=== PATIENT | male | born 1980 | race Caucasian/White ===

== ENCOUNTER 2020-10-10 13:29 | Outpatient (REF) | payer OTHER, SELFPAY ==
[2020-10-10 13:34] LABS: MANUAL DIFF FLAG NO
[2020-10-10 13:40] LABS: Basophils Absolute Auto 0.1 X10*3/uL (0.0-0.2); Basophils Percent Auto 1.1 % (0-2); Eosinophils Absolute Auto 0.4 X10*3/uL (0.0-0.4); Eosinophils Percent Auto 4.3 % (0-4); Hematocrit 41.6 % (42-52); Imm Gran Abs Auto 0.03 X10*3/uL (0.00-0.03); Imm Gran Pct Auto 0.3 % (0.0-0.4); Lymphocytes Percent Auto 34.1 % (20-40); Mean Corpuscular HGB Conc 33.7 g/dl (31.0-36.0); Mean Corpuscular Hemoglobin 32.1 pg (27.0-33.0); Mean Corpuscular Volume 95.4 fL (80-98); Mean Platelet Volume 11.9 fL (9.4-12.4); Monocytes Absolute Auto 0.7 X10*3/uL (0.1-1.2); Monocytes Percent Auto 7.9 % (2-11); Neutrophils Absolute Auto 4.7 X10*3/uL (2.0-8.3); Neutrophils Percent Auto 52.3 % (45-73); Platelet Count 321 X10*3/uL (160-400); Red Blood Count 4.36 X10*6/uL (4.60-5.80); Red Cell Distribution Width 12.2 % (11.0-16.0); White Blood Count 8.9 X10*3/uL (4.8-10.8)
[2020-10-10 13:51] LABS: Glucose Urine UA NEG (NEG); Leukocyte Esterase Urine NEG (NEG); Nitrite Urine NEG (NEG); Urine Blood NEG (NEG); Urine Ketones NEG (NEG); Urine Protein NEG (NEG-TRACE)
[2020-10-10 13:59] LABS: Appearance Urine CLEAR; Color Urine YELLOW
[2020-10-10 14:15] LABS: Alanine Aminotransferase 27 U/L (0-40); Albumin Level 4.6 g/dL (3.5-5.0); Alkaline Phosphatase 58 U/L (39-117); Anion Gap 9 (12-20); Aspartate Amino Transferase 23 U/L (5-37); Bilirubin Total 0.7 mg/dL (0.0-1.0); Blood Urea Nitrogen 13 mg/dL (9-16); Calcium 9.4 mg/dL (8.4-10.2); Carbon Dioxide 28 mmol/L (22-29); Chloride 104 mmol/L (96-108); Cholesterol 245 mg/dL; Estimated Glomerular Filt Rate > 60; Glucose Fasting 102 mg/dL (60-99); HDL Cholesterol 39 mg/dL; LDL Cholesterol Calculated 179 mg/dl; Potassium 3.9 mmol/L (3.3-5.1); Sodium 137 mmol/L (135-145); Total Protein 7.5 g/dL (6.5-8.0); Triglycerides 139 mg/dL
[2020-10-10 14:37] LABS: PSA,Total (Free>4and<10) 0.61 ng/mL (0.00-4.00)
[2020-10-10 17:08] LABS: Reflex LDLD? No
== END 2020-10-10 13:30 | disposition home or self-care (01) ==
LOC: HO.LNP 13:29
PROVIDERS: Visit Provider Internal Medicine
DX: Z00.00 Encounter for general adult medical examination without abnormal findings (principal); Z12.5 Encounter for screening for malignant neoplasm of prostate; E78.00 Pure hypercholesterolemia, unspecified
CPT/HCPCS: 80053; 80061; 81003; 84153; 85025

== ENCOUNTER 2021-12-10 15:29 | Outpatient (REF) | payer OTHER, SELFPAY ==
[2021-12-10 15:33] LABS: MANUAL DIFF FLAG NO
[2021-12-10 15:37] LABS: Appearance Urine CLEAR; Basophils Absolute Auto 0.1 X10*3/uL (0.0-0.2); Basophils Percent Auto 0.8 % (0-2); Color Urine YELLOW; Eosinophils Absolute Auto 0.3 X10*3/uL (0.0-0.4); Eosinophils Percent Auto 3.1 % (0-4); Glucose Urine UA NEG (NEG); Hematocrit 42.7 % (42.0-52.0); Imm Gran Abs Auto 0.03 X10*3/uL (0.00-0.03); Imm Gran Pct Auto 0.3 % (0.0-0.4); Leukocyte Esterase Urine NEG (NEG); Lymphocytes Absolute Auto 2.2 X10*3/uL (1.2-4.9); Lymphocytes Percent Auto 24.7 % (20-40); Mean Corpuscular HGB Conc 32.8 g/dl (31.0-36.0); Mean Corpuscular Hemoglobin 31.8 pg (27.0-33.0); Mean Platelet Volume 12.2 fL (9.4-12.4); Monocytes Absolute Auto 0.8 X10*3/uL (0.1-1.2); Neutrophils Absolute Auto 5.5 x10*3/uL (2.0-8.3); Neutrophils Percent Auto 62.1 % (45-73); Nitrite Urine NEG (NEG); Platelet Count 258 X10*3/uL (160-400); Red Cell Distribution Width 12.5 % (11.0-16.0); Specific Gravity - Urine 1.025 (1.005-1.025); Urine Blood TRACE (NEG); Urine Ketones NEG (NEG); Urine Protein NEG (NEG-TRACE); White Blood Count 8.9 X10*3/uL (4.8-10.8)
[2021-12-10 15:48] LABS: Bacteria Urine TRACE /LPF; RBC Urine 0-2 /HPF (0); Squamous Epithelial Cell Urine TRACE /LPF; WBC Urine 0 /HPF (0-4)
[2021-12-10 15:49] LABS: Alanine Aminotransferase 18 U/L (0-40); Albumin Level 4.4 g/dL (3.5-5.0); Alkaline Phosphatase 60 U/L (39-117); Anion Gap 12 (12-20); Aspartate Amino Transferase 19 U/L (5-37); Bilirubin Total 0.5 mg/dL (0.0-1.0); Blood Urea Nitrogen 15 mg/dL (9-16); Calcium 9.8 mg/dL (8.4-10.2); Carbon Dioxide 26 mmol/L (22-29); Chloride 104 mmol/L (96-108); Cholesterol 271 mg/dL; Estimated Glomerular Filt Rate > 60; Glucose Fasting 97 mg/dL (60-99); HDL Cholesterol 40 mg/dL; LDL Cholesterol Calculated 201 mg/dl; Potassium 4.1 mmol/L (3.3-5.1); Sodium 138 mmol/L (135-145); Total Protein 7.4 g/dL (6.5-8.0); Triglycerides 154 mg/dL
[2021-12-11 12:11] LABS: Free Prostate Spec Ag 0.2 ng/mL; Percent Free Prostate Spec Ag 40 % (calc) (>25); Prostate Specific Ag Total 0.5 ng/mL (< OR = 4.0)
== END 2021-12-10 15:30 | disposition home or self-care (01) ==
LOC: HO.LNP 15:29
PROVIDERS: Visit Provider Internal Medicine
DX: Z00.00 Encounter for general adult medical examination without abnormal findings (principal); Z12.5 Encounter for screening for malignant neoplasm of prostate; E78.00 Pure hypercholesterolemia, unspecified
CPT/HCPCS: 80053; 80061; 81001; 84154; 85025

== ENCOUNTER 2022-06-17 15:34 | Outpatient (REF) | payer OTHER, SELFPAY ==
[2022-06-17 16:19] LABS: Cholesterol 266 mg/dL; HDL Cholesterol 43 mg/dL; LDL Cholesterol Calculated 200 mg/dl; Triglycerides 115 mg/dL
[2022-06-18 06:30] LABS: Reflex LDLD? No
== END 2022-06-17 15:35 | disposition home or self-care (01) ==
LOC: HO.LNP 15:34
PROVIDERS: Visit Provider Internal Medicine
DX: E78.00 Pure hypercholesterolemia, unspecified (principal)
CPT/HCPCS: 80061

== ENCOUNTER 2022-10-05 15:48 | Outpatient (REF) | payer OTHER, SELFPAY ==
[2022-10-05 16:04] LABS: Alanine Aminotransferase 20 U/L (0-40); Albumin Level 4.7 g/dL (3.5-5.0); Alkaline Phosphatase 65 U/L (39-117); Aspartate Amino Transferase 20 U/L (5-37); Bilirubin Direct < 0.2 mg/dL (0.0-0.5); Bilirubin Total 0.5 mg/dL (0.0-1.0); Cholesterol 159 mg/dL; HDL Cholesterol 46 mg/dL; LDL Cholesterol Calculated 96 mg/dl; Total Protein 7.2 g/dL (6.5-8.0); Triglycerides 88 mg/dL
[2022-10-05 18:02] LABS: Reflex LDLD? No
== END 2022-10-05 15:49 | disposition home or self-care (01) ==
LOC: HO.LNP 15:48
PROVIDERS: Visit Provider Internal Medicine
DX: E78.00 Pure hypercholesterolemia, unspecified (principal)
CPT/HCPCS: 80061; 80076

== ENCOUNTER 2022-12-14 15:43 | Outpatient (REF) | payer OTHER, SELFPAY ==
[2022-12-14 15:46] LABS: MANUAL DIFF FLAG NO
[2022-12-14 16:28] LABS: Appearance Urine Clear; Color Urine Yellow; Glucose Urine UA Negative (Negative); Leukocyte Esterase Urine Negative (Negative); Nitrite Urine Negative (Negative); PH 6.5 (5.0-9.0); Urine Blood Negative (Negative); Urine Ketones Negative (Negative); Urine Protein Negative (Neg-Trace)
[2022-12-14 16:30] LABS: Basophils Absolute Auto 0.1 X10*3/uL (0.0-0.2); Eosinophils Absolute Auto 0.3 X10*3/uL (0.0-0.4); Hematocrit 43.6 % (42.0-52.0); Hemoglobin 14.4 g/dl (14.0-18.0); Imm Gran Abs Auto 0.02 X10*3/uL (0.00-0.03); Imm Gran Pct Auto 0.3 % (0.0-0.4); Lymphocytes Absolute Auto 2.6 X10*3/uL (1.2-4.9); Lymphocytes Percent Auto 32.2 % (20-40); Mean Corpuscular Hemoglobin 31.3 pg (27.0-33.0); Mean Corpuscular Volume 94.8 fL (80.0-98.0); Mean Platelet Volume 12.7 fL (9.4-12.4); Monocytes Absolute Auto 0.7 X10*3/uL (0.1-1.2); Monocytes Percent Auto 8.5 % (2-11); Neutrophils Absolute Auto 4.3 x10*3/uL (2.0-8.3); Platelet Count 251 X10*3/uL (160-400); Red Cell Distribution Width 12.8 % (11.0-16.0); White Blood Count 7.9 X10*3/uL (4.8-10.8)
[2022-12-14 16:31] LABS: Bacteria Urine None Seen (None Seen); Hyaline Casts Urine 0-2 /LPF (0-2); RBC Urine 0-2 /HPF (0-2); Squamous Epithelial Cell Urine 0-2 /HPF (0-2); WBC Urine 0-5 /HPF (0-5)
[2022-12-14 16:47] LABS: Alanine Aminotransferase 18 U/L (0-40); Albumin Level 4.6 g/dL (3.5-5.0); Alkaline Phosphatase 72 U/L (39-117); Anion Gap 11 (12-20); Aspartate Amino Transferase 17 U/L (5-37); Bilirubin Total 0.5 mg/dL (0.0-1.0); Blood Urea Nitrogen 12 mg/dL (9-16); Calcium 9.5 mg/dL (8.4-10.2); Carbon Dioxide 27 mmol/L (22-29); Chloride 107 mmol/L (96-108); Cholesterol 147 mg/dL; Estimated Glomerular Filt Rate > 60; Glucose Fasting 103 mg/dL (60-99); HDL Cholesterol 40 mg/dL; LDL Cholesterol Calculated 91 mg/dl; Potassium 4.4 mmol/L (3.3-5.1); Sodium 141 mmol/L (135-145); Total Protein 7.2 g/dL (6.5-8.0); Triglycerides 82 mg/dL
[2022-12-14 17:01] LABS: PSA,Total (Free>4and<10) 0.48 ng/mL (0.00-4.00)
== END 2022-12-14 15:44 | disposition home or self-care (01) ==
LOC: HO.LNP 15:43
PROVIDERS: Visit Provider Internal Medicine
DX: Z00.00 Encounter for general adult medical examination without abnormal findings (principal); E78.00 Pure hypercholesterolemia, unspecified; Z12.5 Encounter for screening for malignant neoplasm of prostate
CPT/HCPCS: 80053; 80061; 81001; 84153; 85025

== ENCOUNTER 2023-06-24 13:09 | Outpatient (REF) | payer OTHER, SELFPAY ==
[2023-06-24 14:16] LABS: Alanine Aminotransferase 17 U/L (0-40); Albumin Level 4.6 g/dL (3.5-5.0); Alkaline Phosphatase 71 U/L (39-117); Aspartate Amino Transferase 19 U/L (5-37); Bilirubin Direct 0.2 mg/dL (0.0-0.5); Bilirubin Total 0.5 mg/dL (0.0-1.0); Cholesterol 154 mg/dL (<200); HDL Cholesterol 42 mg/dL (>40); LDL Cholesterol Calculated 93 mg/dL (<100); Total Protein 7.5 g/dL (6.5-8.0); Triglycerides 98 mg/dL (<150)
[2023-06-24 14:48] LABS: Reflex LDLD? No
== END 2023-06-24 13:10 | disposition home or self-care (01) ==
LOC: HO.LNP 13:09
PROVIDERS: Visit Provider Internal Medicine
DX: E78.00 Pure hypercholesterolemia, unspecified (principal)
CPT/HCPCS: 80061; 80076

== ENCOUNTER 2023-12-16 12:59 | Outpatient (REF) | payer OTHER, SELFPAY ==
[2023-12-16 13:02] LABS: MANUAL DIFF FLAG NO
[2023-12-16 13:10] LABS: Basophils Absolute Auto 0.1 X10*3/uL (0.0-0.2); Basophils Percent Auto 1.1 % (0-2); Eosinophils Absolute Auto 0.4 X10*3/uL (0.0-0.4); Eosinophils Percent Auto 4.7 % (0-4); Hematocrit 41.5 % (42.0-52.0); Hemoglobin 14.3 g/dl (14.0-18.0); Imm Gran Abs Auto 0.03 X10*3/uL (0.00-0.03); Imm Gran Pct Auto 0.4 % (0.0-0.4); Lymphocytes Absolute Auto 2.2 X10*3/uL (1.2-4.9); Lymphocytes Percent Auto 25.2 % (20-40); Mean Corpuscular HGB Conc 34.5 g/dl (31.0-36.0); Mean Corpuscular Hemoglobin 31.8 pg (27.0-33.0); Mean Corpuscular Volume 92.4 fL (80.0-98.0); Mean Platelet Volume 12.2 fL (9.4-12.4); Monocytes Absolute Auto 0.9 X10*3/uL (0.1-1.2); Monocytes Percent Auto 10.1 % (2-11); Neutrophils Percent Auto 58.5 % (45-73); Platelet Count 244 X10*3/uL (160-400); Red Blood Count 4.49 X10*6/uL (4.60-5.80); Red Cell Distribution Width 12.5 % (11.0-16.0); White Blood Count 8.5 X10*3/uL (4.8-10.8)
[2023-12-16 13:20] LABS: Alanine Aminotransferase 19 U/L (0-40); Albumin Level 4.6 g/dL (3.5-5.0); Alkaline Phosphatase 68 U/L (39-117); Anion Gap 13 (12-20); Aspartate Amino Transferase 19 U/L (5-37); Bilirubin Total 0.4 mg/dL (0.0-1.0); Blood Urea Nitrogen 14 mg/dL (9-16); Carbon Dioxide 27 mmol/L (22-29); Chloride 105 mmol/L (96-108); Cholesterol 150 mg/dL (<200); Estimated Glomerular Filt Rate > 60; Glucose Fasting 121 mg/dL (60-99); HDL Cholesterol 42 mg/dL (>40); LDL Cholesterol Calculated 93 mg/dL (<100); Potassium 3.9 mmol/L (3.3-5.1); Sodium 141 mmol/L (135-145); Total Protein 7.8 g/dL (6.5-8.0); Triglycerides 79 mg/dL (<150)
[2023-12-16 13:32] LABS: Appearance Urine Clear; Color Urine Yellow; Glucose Urine UA Negative (Negative); Leukocyte Esterase Urine Negative (Negative); Nitrite Urine Negative (Negative); PH 5.5 (5.0-9.0); Urine Blood Negative (Negative); Urine Ketones Negative (Negative); Urine Protein Negative (Neg-Trace)
[2023-12-16 13:37] LABS: Bacteria Urine None Seen (None Seen); Hyaline Casts Urine 0-2 /LPF (0-2); RBC Urine 0-2 /HPF (0-2); Squamous Epithelial Cell Urine 0-2 /HPF (0-2); WBC Urine 0-5 /HPF (0-5)
[2023-12-16 13:40] LABS: PSA,Total (Free>4and<10) 0.47 ng/mL (0.00-4.00)
== END 2023-12-16 13:00 | disposition home or self-care (01) ==
LOC: HO.LNP 12:59
PROVIDERS: Visit Provider Internal Medicine
DX: Z00.00 Encounter for general adult medical examination without abnormal findings (principal); Z12.5 Encounter for screening for malignant neoplasm of prostate; Z13.6 Encounter for screening for cardiovascular disorders
CPT/HCPCS: 80053; 80061; 81001; 84153; 85025

== ENCOUNTER 2024-06-25 13:09 | Outpatient (REF) | payer OTHER, SELFPAY ==
[2024-06-25 13:43] LABS: Alanine Aminotransferase 31 U/L (0-40); Albumin Level 4.5 g/dL (3.5-5.0); Alkaline Phosphatase 70 U/L (39-117); Aspartate Amino Transferase 26 U/L (5-37); Bilirubin Direct 0.2 mg/dL (0.0-0.5); Bilirubin Total 0.4 mg/dL (0.0-1.0); Cholesterol 158 mg/dL (<200); HDL Cholesterol 42 mg/dL (>40); LDL Cholesterol Calculated 97 mg/dL (<100); Total Protein 7.5 g/dL (6.5-8.0); Triglycerides 98 mg/dL (<150)
[2024-06-25 15:17] LABS: Reflex LDLD? No
== END 2024-06-25 13:10 | disposition home or self-care (01) ==
LOC: HO.LNP 13:09
PROVIDERS: Visit Provider Internal Medicine
DX: E78.00 Pure hypercholesterolemia, unspecified (principal)
CPT/HCPCS: 80061; 80076

== ENCOUNTER 2024-12-20 13:17 | Outpatient (REF) | payer BC, SELFPAY ==
[2024-12-20 13:24] LABS: MANUAL DIFF FLAG NO
[2024-12-20 13:38] LABS: Basophils Absolute Auto 0.1 X10*3/uL (0.0-0.2); Basophils Percent Auto 1.3 % (0-2); Eosinophils Absolute Auto 0.3 X10*3/uL (0.0-0.4); Eosinophils Percent Auto 4.1 % (0-4); Hematocrit 43.5 % (42.0-52.0); Hemoglobin 14.5 g/dl (14.0-18.0); Imm Gran Abs Auto 0.03 X10*3/uL (0.00-0.03); Imm Gran Pct Auto 0.4 % (0.0-0.4); Lymphocytes Absolute Auto 2.6 X10*3/uL (1.2-4.9); Lymphocytes Percent Auto 33.1 % (20-40); Mean Corpuscular HGB Conc 33.3 g/dl (31.0-36.0); Mean Corpuscular Hemoglobin 31.6 pg (27.0-33.0); Mean Corpuscular Volume 94.8 fL (80.0-98.0); Mean Platelet Volume 12.5 fL (9.4-12.4); Monocytes Absolute Auto 0.5 X10*3/uL (0.1-1.2); Monocytes Percent Auto 6.8 % (2-11); Neutrophils Absolute Auto 4.3 x10*3/uL (2.0-8.3); Neutrophils Percent Auto 54.3 % (45-73); Platelet Count 223 X10*3/uL (160-400); Red Blood Count 4.59 X10*6/uL (4.60-5.80); Red Cell Distribution Width 12.8 % (11.0-16.0)
[2024-12-20 13:53] LABS: Appearance Urine Clear; Color Urine Yellow; Glucose Urine UA Negative (Negative); Leukocyte Esterase Urine Negative (Negative); Nitrite Urine Negative (Negative); Specific Gravity - Urine 1.015 (1.005-1.025); UMIC TRIGGER UACC YES; Urine Blood Trace (Negative); Urine Ketones Negative (Negative); Urine Protein Negative (Neg-Trace)
[2024-12-20 13:58] LABS: Alanine Aminotransferase 20 U/L (0-40); Albumin Level 4.6 g/dL (3.5-5.0); Alkaline Phosphatase 62 U/L (39-117); Anion Gap 11 (12-20); Aspartate Amino Transferase 23 U/L (5-37); Bacteria Urine None Seen (None Seen); Bilirubin Total 0.4 mg/dL (0.0-1.0); Blood Urea Nitrogen 15 mg/dL (9-16); Calcium 9.5 mg/dL (8.4-10.2); Carbon Dioxide 27 mmol/L (22-29); Chloride 106 mmol/L (96-108); Cholesterol 156 mg/dL (<200); Estimated Glomerular Filt Rate > 60; Glucose Fasting 119 mg/dL (60-99); HDL Cholesterol 41 mg/dL (>40); Hyaline Casts Urine 0-2 /LPF (0-2); LDL Cholesterol Calculated 99 mg/dL (<100); Potassium 4.2 mmol/L (3.3-5.1); RBC Urine 0-2 /HPF (0-2); Sodium 140 mmol/L (135-145); Squamous Epithelial Cell Urine 0-2 /HPF (0-2); Total Protein 7.5 g/dL (6.5-8.0); Triglycerides 83 mg/dL (<150); WBC Urine 0-5 /HPF (0-5)
[2024-12-20 14:18] LABS: PSA,Total (Free>4and<10) 0.48 ng/mL (0.00-4.00)
== END 2024-12-20 13:18 | disposition home or self-care (01) ==
LOC: HO.LNP 13:17
PROVIDERS: Visit Provider Internal Medicine
DX: Z00.00 Encounter for general adult medical examination without abnormal findings (principal); Z12.5 Encounter for screening for malignant neoplasm of prostate; E78.00 Pure hypercholesterolemia, unspecified
CPT/HCPCS: 80053; 80061; 81001; 84153; 85025

== ENCOUNTER 2024-12-27 14:48 | Outpatient (REF) | payer BC, SELFPAY ==
[2024-12-27 14:56] LABS: Appearance Urine Clear; Color Urine Yellow; Glucose Urine UA Negative (Negative); Leukocyte Esterase Urine Trace (Negative); Nitrite Urine Negative (Negative); PH 5.5 (5.0-9.0); UMIC TRIGGER UACC YES; Urine Blood Negative (Negative); Urine Ketones Negative (Negative); Urine Protein Negative (Neg-Trace)
[2024-12-27 14:59] LABS: Bacteria Urine None Seen (None Seen); RBC Urine 0-2 /HPF (0-2); Squamous Epithelial Cell Urine 0-2 /HPF (0-2); WBC Urine 0-5 /HPF (0-5)
--- OUTSIDE RECORDS SUMMARY | 2024-12-27 15:28 | XMS_ITS ---
Author Organization Dominick Westbrook MD Address [address] [place] [phone] Care Team Providers Care Aerial Applicator Pilot Name Role Phone Dominick Westbrook Primary Care Provider [phone] Results Component Value Reference Range Notes Liver Panel Reviewed date:06/25/2024 05:49:22 PM Interpretation: Performing Lab:[address] [id number] Notes/Report: Bilirubin Total 0.4 0.0-1.0 mg/dL Bilirubin Direct 0.2 0.0-0.5 mg/dL Aspartate Amino Transferase 26 5-37 U/L Alanine Aminotransferase 31 0-40 U/L Total Protein 7.5 6.5-8.0 g/dL Albumin Level 4.5 3.5-5.0 g/dL Alkaline Phosphatase 70 39-117 U/L Lipid Panel with Reflex Reviewed date:06/25/2024 05:50:41 PM Interpretation: Performing Lab:[address] [id number] Notes/Report: Triglycerides 98 <150 mg/dL Desirable Triglyceride: less than 150 mg/dL Borderline High Triglyceride 150-199 mg/dL High Triglyceride: 200-499 mg/dL Very High Triglyceride: greater than or equal to 5OO mg/dL Cholesterol 158 <200 mg/dL Desirable Cholesterol: less than 200 mg/dL Borderline High Cholesterol: 200-239 mg/dL High Cholesterol: greater than 239 mg/dL LDL Cholesterol Calculated 97 <100 mg/dL Desirable LDL: less than 100 mg/dL Near Optimal/Above Optimal LDL: 110-129 mg/dL Borderline High LDL: 130-159 mg/dL High LDL: 160-189 mg/dL Very High LDL: greater than or equal to 190 mg/dL HDL Cholesterol 42 >40 mg/dL Desirable HDL: greater than 40 mg/dL Note: This HDL assay may give artificially low results in patients with liver disease. REASON FOR VISIT FASTING LIPIDS Encounters Encounter Location Date Provider Diagnosis Dominick Westbrook MD [address] [place] [phone] 06/25/2024 Dominick Westbrook Hypercholesterolemia E78.00 Assessments Encounter Date Diagnosis (ICD Code) Assessment Notes Treatment Notes Treatment Clinical Notes Section Notes 06/25/2024 Hypercholesterolemia (ICD-10 - E78.00) Plan Of Treatment Next Appt Details Provider Name:Dominick young, 07/01/2025 08:00:00 AM, [address] [place] [address], [address], [phone], Provider Name:Dominick young, 12/23/2025 07:45:00 AM, [address] [place] [address], [address], [phone], Provider Name:Dominick young, 12/30/2025 01:00:00 PM, [address] [place] [address], [address], [phone], Progress Notes * Tomi GIBBS MDOB:1979 (44 yo M)Acc No.[id number]:06/25/2024 Progress Note Patient:?Tomi IGBBS Provider:?Dominick Westbrook MD :1980???Age:43 Y???Sex:Male Hank e:06/25/2024 Address:[address] [place], [place] [phone] Subjective: * Chief Complaints: * ???1. FASTING LIPIDS. * Medical History:? Objective: * Vitals:? Assessment: * Assessment: 1.?Hypercholesterolemia - E7 8.00 (Primary)??? Plan: * Treatment: * Procedure Codes:?65792 VENIP UNCT, ROUTINE* * * The named appointment provid er may or may not be the originator of this progress note, and it is not deemed complete until electronically signed by the appointment provider. Sign off status: Pending * Provider:?Dominick Westbrook MD Date:?1 08/25/2023 Generated for Dena silva/Rodriguez/Saraitting on:?12/27/2024 03:27 PM EDT
--- OUTSIDE RECORDS SUMMARY | 2024-12-27 15:28 | XMS_ITS ---
Author Organization Dominick Westbrook MD Address [address] [place] [phone] Care Team Providers Care Media Intern Name Role Phone Dominick Westbrook Primary Care Provider [phone] Results Component Value Reference Range Notes Complete Blood Count Auto Di ff Reviewed date:12/20/2024 05:07:15 PM Interpretation: Performing Lab:[facility], [address] [place] [phone] Notes/Report: White Blood Count 8.0 4.8-10.8 X10*3/uL Red Blood Count 4.59 4.60-5.80 X10*6/uL Hemoglobin 14.5 14.0-18.0 g/dl Hematocrit 43.5 42.0-52.0 % Mean Corpuscular Volume 94.8 80.0-98.0 fL Mean Corpuscular Hemoglobin 31.6 27.0-33.0 pg Mean Corpuscular HGB Conc 33.3 31.0-36.0 g/dl Red Cell Distribution Width 12.8 11.0-16.0 % Platelet Count 223 160-400 X10*3/uL Mean Platelet Volume 12.5 9.4-12.4 fL Neutrophils Percent Auto 54.3 45-73 % Imm Gran Pct Auto 0.4 0.0-0.4 % Lymphocytes Percent Auto 33.1 20-40 % Monocytes Percent Auto 6.8 2-11 % Eosinophils Percent Auto 4.1 0-4 % Basophils Percent Auto 1.3 0-2 % NRBC Pct Auto 0.0 0.0-0.2 /100WBC Neutrophils Absolute Auto 4.3 2.0-8.3 x10*3/u L Imm Gran Abs Auto 0.03 0.00-0.03 X10*3/uL Lymphocytes Absolute Auto 2.6 1.2-4.9 X10*3/u L Monocytes Absolute Auto 0.5 0.1-1.2 X10*3/uL Eosinophils Absolute Auto 0.3 0.0-0.4 X10*3/u L Basophils Absolute Auto 0.1 0.0-0.2 X10*3/uL NRBC Abs Auto 0.000 0.0-0.012 X10*3/uL Comprehensive [place]. Panel Fa st Reviewed date:12/21/2024 12:36:06 PM Interpretation: Performing Lab:[address] [id number] Notes/Report: Sodium 140 135-145 mmol/L Potassium 4.2 3.3-5.1 mmol/L Chloride 106 96-108 mmol/L Carbon Dioxide 27 22-29 mmol/L Anion Gap 11 12-20 Blood Urea Nitrogen 15 9-16 mg/dL Creatinine 1.08 0.5-1.4 mg/dL Estimated Glomerular Filt Rate > 60 Chronic Kidney Disease: Estimated GFR < 60 mL/min/1.73m2 Severe Kidney Disease: Estimated GFR < 15 mL/min/1.73m2 Glucose Fasting 119 60-99 mg/dL A fasting glucose from 100-125 mg/dl is considered impaired (pre-diabetes). Calcium 9.5 8.4-10.2 mg/dL Bilirubin Total 0.4 0.0-1.0 mg/dL Aspartate Amino Transferase 23 5-37 U/L Alanine Aminotransferase 20 0-40 U/L Total Protein 7.5 6.5-8.0 g/dL Albumin Level 4.6 3.5-5.0 g/dL Alkaline Phosphatase 62 39-117 U/L Lipid Panel Reviewed date:12/20/2024 04:48:20 PM Interpretation: Performing Lab:[facility] [id number] Notes/Report: Triglycerides 83 <150 mg/dL Desirable Triglyceride: less than 150 mg/dL Borderline High Triglyceride 150-199 mg/dL High Triglyceride: 200-499 mg/dL Very High Triglyceride: greater than or equal to 5OO mg/dL Cholesterol 156 <200 mg/dL Desirable Cholesterol: less than 200 mg/dL Borderline High Cholesterol: 200-239 mg/dL High Cholesterol: greater than 239 mg/dL LDL Cholesterol Calculated 99 <100 mg/dL Desirable LDL: less than 100 mg/dL Near Optimal/Above Optimal LDL: 110-129 mg/dL Borderline High LDL: 130-159 mg/dL High LDL: 160-189 mg/dL Very High LDL: greater than or equal to 190 mg/dL HDL Cholesterol 41 >40 mg/dL Desirable HDL: greater than 40 mg/dL Note: This HDL assay may give artificially low results in patients with liver disease. PSA,Total (Free>4and<10) Reviewed date:12/20/2024 04:54:16 PM Interpretation: Performing Lab:[address] [phone] Notes/Report: PSA,Total (Free>4and<10) 0.48 0.00-4.00 ng/mL A Free PSA was not performed: The percentage of Free PSA can be used to enhance the differentiation of prostate cancer from benign prostatic disease in subjects whose PSA levels are between 4.0 and 10.0 ng/mL. For subjects whose PSA levels are below 4.0 or above 10.0 ng/mL, the risk of prostate cancer is determined on the basis of the PSA alone. Therefore the % Free PSA is recommended only for those subjects whose PSA levels are between 4.0 and 10.0 ng/mL. PSA methodology: Estes Alinity i Chemiluminescent Microparticle Immunoassay (CMIA) UA ClnCatch+Micro w/rflx Cul t Reviewed date:12/21/2024 12:54:06 PM Interpretation: Performing Lab:[address] [phone] Notes/Report: Urine, Clean Catch Color Urine Yellow Appearance Urine Clear PH 6.0 5.0-9.0 Glucose Urine UA Negative Negative mg/dL Urine Blood Trace Negative Specific [employer] Mdl - Urine 1.015 1.005-1.025 Urine Protein Negative Neg-Trace mg/dL Urine Ketones Negative Negative mg/dL Nitrite Urine Negative Negative Leukocyte Esterase Urine Negative Negative RBC Urine 0-2 0-2 /HPF WBC Urine 0-5 0-5 /HPF Squamous Epithelial Cell Urine 0-2 0-2 /HPF Bacteria Urine None Seen None Seen Hyaline Casts Urine 0-2 0-2 /LPF REASON FOR VISIT FASTING LABS- coming in for 11am Medications Medication SIG (Take, Route, Frequency, Duration) Notes Start Date End Date Status Rosuvastatin Calcium 10 MG TAKE 1 TABLET BY MOUTH EVERY DAY for 30 Active Advil 200 MG 1 tablet with food o r milk as needed Orally every 6 hrs Not-Taking Encounters Encounter Location Date Provider Diagnosis Dominick Westbrook MD [address] [place] [phone] 12/20/2024 Dominick Westbrook Blood tests for rout ine general physical examination Z00.00 and Hypercholesterolemia E78.00 Assessments Encounter Date Diagnosis (ICD Code) Assessment Notes Treatment Notes Treatment Clinical Notes Section Notes 12/20/2024 Blood tests for rout ine general physical examination (ICD-10 - Z00.00) 12/20/2024 Hypercholesterolemia (ICD-10 - E78.00) Plan Of Treatment Next Appt Details Provider Name:Dominick young, 07/01/2025 08:00:00 AM, [address] [place] [address], [phone], Provider Name:Dominick young, 12/23/2025 07:45:00 AM, [address] [place] [address], [phone], Provider Name:Dominick young, 12/30/2025 01:00:00 PM, [address] [place] [address], [phone], Progress Notes * Tomi GIBBS MDOB:1979 (44 yo M)Acc No.[id number]:12/20/2024 Progress Note Patient:?Tomi GIBBS Provider:?Dominick Westbrook MD :1980???Age:44 Y???Sex:Male Hank e:12/20/2024 Address:[place], [id number] Subjective: * Chief Complaints: * ???1. FASTING LABS- coming i n for 11am. * Medical History:? * Medications:?Taking Rosuvast atin Calcium 10 MG Tablet TAKE 1 TABLET BY MOUTH EVERY DAY , Not-Taking/PRN Advil 200 MG Tablet 1 tablet with food or milk as needed Orally every 6 hrs Objective: * Vitals:? Assessment: * Assessment: 1.?Blood tests for routine g eneral physical examination - Z00.00 (Primary)???2.?Hypercholesterolemia - E78.00??? Plan: * Treatment: 2.?Hypercholesterolemia?LAB: Complete Blood Count Auto Diff (Collection Date & Time - 12/20/2024 07:45 AM) ?LAB: [facility] [place]. Panel Fast (Collection Date & Time - 12/20/2024 07:45 AM) ?LAB: Lipid Panel (Collection Date & Time - 12/20/2024 07:45 AM) ?LAB: PSA,Total (Free>4and<10) (Collection Date & Time - 12/20/2024 07:45 AM) ?LAB: UA ClnCatch+Micro w/rflx Cult (Collection Date & Time - 12/20/2024 07:45 AM) * Procedure Codes:?80609 VENIP UNCT, ROUTINE* * * The named appointment provid er may or may not be the originator of this progress note, and it is not deemed complete until electronically signed by the appointment provider. Sign off status: Pending * Provider:?Dominick Westbrook MD Date:?0 12/20/2024 Generated for Luis Alfredoi ng/Rodriguez/eTransmitting on:?12/27/2024 03:28 PM EDT
--- OUTSIDE RECORDS SUMMARY | 2024-12-27 15:28 | XMS_ITS ---
Author Organization Dominick Westbrook MD Address [address] [place] [phone] Care Team Providers Care Admissions Advisor Name Role Phone Dominick Westbrook Primary Care Provider Allergies Allergen (clinical drug ingredient) Drug/Non Drug Allergy documented on EMR Reaction Allergy Type Onset Date Status penicillin V Penicillin V Potassium rash Drug Allergy Active amoxicillin / clavulanate Augmentin rash Drug Allergy Active Results Component Value Reference Range Notes UA ClnCatch+Micro w/rflx Cul t (Not yet reviewed by provider) Interpretation: Performing Lab:[facility], [address] [place] [phone] Notes/Report: Urine, Clean Catch Color Urine Yellow Appearance Urine Clear PH 5.5 5.0-9.0 Glucose Urine UA Negative Negative mg/dL Urine Blood Negative Negative Specific [place] - Urine 1.020 1.005-1.025 Urine Protein Negative Neg-Trace mg/dL Urine Ketones Negative Negative mg/dL Nitrite Urine Negative Negative Leukocyte Esterase Urine Trace Negative RBC Urine 0-2 0-2 /HPF WBC Urine 0-5 0-5 /HPF Squamous Epithelial Cell Urine 0-2 0-2 /HPF Bacteria Urine None Seen None Seen Hyaline Casts Urine 3-5 0-2 /LPF Occult Blood, Stool, Guaiac Reviewed date:12/27/2024 03:17:08 PM Interpretation:Negative Performing Lab: Notes/Report: Negative Occult Blood, Stool, Guaiac Neg REASON FOR VISIT ANNUAL EXAM A1C is 5.7, Repeat Urine Medications Medication SIG (Take, Route, Frequency, Duration) Notes Start Date End Date Status Rosuvastatin Calcium 10 MG TAKE 1 TABLET BY MOUTH EVERY DAY Active Advil 200 MG 1 tablet with food o r milk as needed Orally every 6 hrs Not-Taking Social History Tobacco Use: Social History Observation Description Date Details (start date - stop date) Former Smoker NA - NA Tobacco Use/Smoking Question Answer Notes Patient is a former smoker How long has it been since y ou last smoked? 1-5 years Additional Findings: Tobacco Non-User Fo rmer smoker, currently using no form of tobacco Alcohol Screen Question Answer Notes Did you have a drink containing alcohol in the p ast year? No Points 0 Interpretation Negative Vital Signs Blood pressure systolic 102 mm Hg 12/28/19 25 Blood pressure diastolic 60 mm Hg 025 Height 66.5 in 12/27/2024 Weight 149 lbs 12/27/2024 BMI 23.69 kg/m2 12/27/2024 Encounters Encounter Location Date Provider Diagnosis Dominick Westbrook MD [address] [place] [address] [address] [place], [place] [phone] 12/27/2024 Dominick Westbrook Hematuria R31.9 ; An nual physical exam Z00.00 ; Prediabetes R73.09 ; Hypercholesterolemia E78.00 ; Colon cancer screening Z12.11 and Depression screening Z13.31 Assessments Encounter Date Diagnosis (ICD Code) Assessment Notes Treatment Notes Treatment Clinical Notes Section Notes 12/27/2024 Hematuria (ICD-10 - R31.9) will continue to monitor, pending lab 12/27/2024 Annual physical exam (ICD-10 - Z00.00) labs reviewed and discussed with patient 12/27/2024 Prediabetes (ICD-10 - R73.09) stable, no need for medication at this time 12/27/2024 Hypercholesterolemia (ICD-10 - E78.00) stable, will continue current regiment 12/27/2024 Colon cancer screeni ng (ICD-10 - Z12.11) guaiac negative 12/27/2024 Depression screening (ICD-10 - Z13.31) negative screen Plan Of Treatment Medication Medication Name Sig Start Date Stop Date Notes Rosuvastatin Calcium 10 MG TAKE 1 TABLET BY MOUTH EVERY DAY Treatment Notes Assessment Notes Hematuria will continue to mon itor, pending lab Annual physical exam labs reviewed and d iscussed with patient Prediabetes stable, no need for medication at this time Hypercholesterolemia stable, will contin ue current regiment Colon cancer screening guaiac negative Depression screening negative screen Pending Test Test Name Order Date UA ClnCatch+Micro w/rflx Cult 12/27/2024 Future Test Test Name Order Date Liver Panel 06/29/2025 Next Appt Details Provider Name:Dominick Mendoza ier, 07/01/2025 08:00:00 AM, [address] [place] [address], Suite [facility], [place], [place], [phone], Provider Name:Dominick young, 12/23/2025 07:45:00 AM, [address] [place] [address], Suite [facility], [place], [place], [phone], Provider Name:Dominick packr, 12/30/2025 01:00:00 PM, [address] [place] [address], Suite [facility], [place], [place], [phone], Progress Notes * Tomi GIBBS MDOB:1979 (44 yo M)Acc No.[id number]:12/27/2024 Progress Notes Patient:?Tomi GIBBS Provider:?Dominick Westbrook MD :1980???Age:44 Y???Sex:Male Hank e:12/27/2024 Address:[address] [place] [address] [id number] Subjective: * Chief Complaints: * ???1. ANNUAL EXAM A1C is 5.7 . 2. Repeat Urine. * HPI: ???Depression Screening:?PHQ-9?Little interest or pleasure in doing things?Not at all,?Feeling down, depressed, or hopeless?Not at all,?Trouble falling or staying asleep, or sleeping too much?Not at all,?Feeling tired or having little energy?Not at all,?Poor appetite or overeating?Not at all,?Feeling bad about yourself or that you are a failure, or have let yourself or your family down?Not at all,?Trouble concentrating on things, such as reading the newspaper or watching television?Not at all,?Moving or speaking so slowly that other people could have noticed; or the opposite, being so fidgety or restless that you have been moving around a lot more than usual?Not at all,?Thoughts that you would be better off or of hurting yourself in some way?Not at all,?Total Score?0.?Interpretation and Intervention?Depression Screening Findings?Negative,?Follow-Up for Depression?: review of PHQ-9 found negative result, no follow-up needed.?Communication Needs:?Communication Needs?Does the patient have a hearing impairment?No,?Does the patient have a vision impairment??No,?Does the patient have a cognition impairment??No.?SDOH Questions:?SDOH Questions?In the past year have you been worried about losing housing??No,?In the past year have you or any family members you live with been unable to get any of the following when it was really needed? Check all that apply:?None.?Symptom(s):? patient is a 44 yo male here for annual visit with review of recent labs and follow up of chronic issues. * ROS:?General/Constitutional:?Change in appetite?denies.?Chills?denies.?Fever?denies.?Ophthalmologic:?Blurred vision?denies.?Discharge?denies.?Pain?denies.?ENT:?Decreased hearing?denies.?Sore throat?denies.?Swollen glands?denies.?Endocrine:?Cold intolerance?denies.?Excessive thirst?denies.?Heat intolerance?denies.?Weight loss?denies.?Respiratory:?Cough?denies.?Shortness of breath at rest?denies.?Shortness of breath with exertion?denies.?Wheezing?denies.?Cardiovascular:?Chest pain at rest?denies.?Chest pain with exertion?denies.?Irregular heartbeat?denies.?Shortness of breath?denies.?Gastrointestinal:?Abdominal pain?denies.?Change in bowel habits?denies.?Diarrhea?denies.?Nausea?denies.?Rectal bleeding?denies.?Vomiting?denies .?Genitourinary:?Blood in urine?denies.?Difficulty urinating?denies.?Frequent urination?denies.?Musculoskeletal:?Painful joints?denies.?Weakness?denies.?Skin:?Dry skin?denies.?Itching?denies.?Denies?Mole(s),? changes in moles, new moles or any lesions of concern.?Denies?Photosensitivity.?Rash?denies.?Neurologic:?Dizziness?denies.?Fainting?denies.?Headache?denies.? * Medical History:?4.7 risk of coronary disease in 10 years, Cologard 2023. * Family History:?Father: jeanine castelan 72 yrs, diagnosed with Hypertension.?Mother: alive 68 yrs, none.?1 brother(s) - healthy. .? Father healthy mother healthy, No pertinent family medical history, Denies mental health/substance abuse family history Father just diagnosed with Parkinson's, No pertinent family medical history. * Social History:?Tobacco Use:?Tobacco Use/Smoking?Patient is a?former smoker,?How long has it been since you last smoked??1-5 years,?Additional Findings: Tobacco Non-User?Former smoker, currently using no form of tobacco.?Drugs/Alcohol:?Alcohol Screen?Did you have a drink containing alcohol in the past year??No,?Points?0,?Interpretation?Negative.?Miscellaneous:?Caffeine: yes, frequency:, 1-2 cups per day. Children: no. Community involvements: yes. Exercise: yes, 2-3 times per week mountain bike golfing, running walking. Housing: owning. Living with: alone. Marital status: single. Occupation: works full-time. Pets: none. Travel outside of the [place]: yes, [place]. * Medications:?Taking Rosuvast atin Calcium 10 MG Tablet TAKE 1 TABLET BY MOUTH EVERY DAY , Not-Taking/PRN Advil 200 MG Tablet 1 tablet with food or milk as needed Orally every 6 hrs , Medication List reviewed and reconciled with the patient * Allergies:?Augmentin: rash, Penicillin V Potassium: rash. Objective: * Vitals:?Ht: 66.5, Wt: 149, B NH:23.69, BP:102/60, Wt-k.59. * ???Past Orders: ???Lab:Complete Blood Count Auto Diff (Order Date - 12/20/2024) (Collection Date & Time - 12/20/2024 07:45 AM) ? Value Reference Range ?White Blood Count 8.0 4. 8-10.8 - X10*3/uL ?Red Blood Count 4.59 L 4.60 -5.80 - X10*6/uL ?Hemoglobin 14.5 14.0-18.0 - g/dl ?Hematocrit 43.5 42.0-52.0 - % ?Mean Corpuscular Volume 94.8 80.0-98.0 - fL ?Mean Corpuscular Hemoglobin 31.6 27.0-33.0 - pg ?Mean Corpuscular HGB Conc 33.3 31.0-36.0 - g/dl ?Red Cell Distribution Width 12.8 11.0-16.0 - % ?Platelet Count 223 160-4 00 - X10*3/uL ?Mean Platelet Volume 12.5 H 9.4-12.4 - fL ?Neutrophils Percent Auto 54.3 45-73 - % ?Imm Gran Pct Auto 0.4 0. 0-0.4 - % ?Lymphocytes Percent Auto 33.1 20-40 - % ?Monocytes Percent Auto 6.8 2-11 - % ?Eosinophils Percent Auto 4.1 H 0-4 - % ?Basophils Percent Auto 1.3 0-2 - % ?NRBC Pct Auto 0.0 0.0-0. 2 - /100WBC ?Neutrophils Absolute Auto 4.3 2.0-8.3 - x10*3/uL ?Imm Gran Abs Auto 0.03 0. 00-0.03 - X10*3/uL ?Lymphocytes Absolute Auto 2.6 1.2-4.9 - X10*3/uL ?Monocytes Absolute Auto 0.5 0.1-1.2 - X10*3/uL ?Eosinophils Absolute Auto 0.3 0.0-0.4 - X10*3/uL ?Basophils Absolute Auto 0.1 0.0-0.2 - X10*3/uL ?NRBC Abs Auto 0.000 0.0-0. 012 - X10*3/uL ???Lab:Lipid Panel (Order Da te - 12/20/2024) (Collection Date & Time - 12/20/2024 07:45 AM) ? Value Reference Range ?Triglycerides 83 <150 - mg/dL ?Cholesterol 156 <200 - m g/dL ?LDL Cholesterol Calculated 99 <100 - mg/dL ?HDL Cholesterol 41 >40 - mg/dL ???Lab:PSA,Total (Free>4and< 10) (Order Date - 12/20/2024) (Collection Date & Time - 12/20/2024 07:45 AM) ? Value Reference Range ?PSA,Total (Free>4and<10) 0.48 0.00-4.00 - ng/mL ???Lab:Comprehensive [place]. P antonio Fast (Order Date - 12/20/2024) (Collection Date & Time - 12/20/2024 07:45 AM) ? Value Reference Range ?Sodium 140 135-145 - mmo l/L ?Bilirubin Total 0.4 0.0- 1.0 - mg/dL ?Aspartate Amino Transferase 23 5-37 - U/L ?Alanine Aminotransferase 20 0-40 - U/L ?Total Protein 7.5 6.5-8. 0 - g/dL ?Albumin Level 4.6 3.5-5. 0 - g/dL ?Alkaline Phosphatase 62 39-117 - U/L ?Potassium 4.2 3.3-5.1 - mmol/L ?Chloride 106 96-108 - mm ol/L ?Carbon Dioxide 27 22-29 - mmol/L ?Anion Gap 11 L 12-20 - ?Blood Urea Nitrogen 15 9-16 - mg/dL ?Creatinine 1.08 0.5-1.4 - mg/dL ?Estimated Glomerular Filt Rate > 60 - ?Glucose Fasting 119 H 60-9 9 - mg/dL ?Calcium 9.5 8.4-10.2 - m g/dL ???Lab:UA ClnCatch+Micro w/r flx Cult (Order Date - 12/20/2024) (Collection Date & Time - 12/20/2024 07:45 AM) ? Value Reference Range ?Color Urine Yellow - ?Appearance Urine Clear - ?PH 6.0 5.0-9.0 - ?Glucose Urine UA Negative Neg ative - mg/dL ?Urine Blood Trace A Negative - ?Specific [place] - Urine 1.015 1.005-1.025 - ?Urine Protein Negative Neg-Tr talia - mg/dL ?Urine Ketones Negative Negati ve - mg/dL ?Nitrite Urine Negative Negati ve - ?Leukocyte Esterase Urine Negative Negative - ?RBC Urine 0-2 0-2 - /HPF ?WBC Urine 0-5 0-5 - /HPF ?Squamous Epithelial Cell Urine 0-2 0-2 - /HPF ?Bacteria Urine None Seen None Seen - ?Hyaline Casts Urine 0-2 0-2 - /LPF * Examination: ???General Examination: ?GENERAL APPEARANCE:?well developed, well nourished, in no acute distress.?HEAD:?normocephalic, atraumatic.?EYES:?pupils equal, round, reactive to light and accommodation, sclera non-icteric.?EARS:?normal.?ORAL CAVITY:?mucosa moist.?THROAT:?clear.?NECK/THYROID:?neck supple, full range of motion, no cervical lymphadenopathy, no bruits.?SKIN:?warm and dry, no suspicious lesions.?HEART:?regular rate and rhythm, S1, S2 normal, no murmurs.?LUNGS:?clear to auscultation bilaterally.?ABDOMEN:?soft, nontender, nondistended, bowel sounds present, normal, no organomegaly , no masses palpable.?RECTAL EXAM:?normal tone, no external hemorrhoids, no masses palpable, prostate normal, stool guaiac negative.?MALE GENITOURINARY:?circumcised, no testicular mass, testes descended bilaterally.?EXTREMITIES:?no clubbing, cyanosis, or edema.?NEUROLOGIC:?nonfocal, motor strength normal upper and lower extremities, sensory exam intact.? Assessment: * Assessment: 1.?Annual physical exam - Z0 0.00 (Primary)???2.?Hematuria - R31.9???3.?Prediabetes - R73.09???4.?Hypercholesterolemia - E78.00???5.?Colon cancer screening - Z12.11???6.?Depression screening - Z13.31??? Plan: * Treatment: 2.?Hematuria?LAB: UA ClnCatch+Micro w/rflx Cult (Collection Date & Time - 12/27/2024 01:00 AM) Notes: will continue to monitor, pending lab?? 3.?Prediabetes? Notes: stable, no need for medication at this time?? 4.?Hypercholesterolemia? Continue Rosuvastatin Calcium Tablet, 10 MG, TAKE 1 TABLET BY MOUTH EVERY DAY.?LAB: Liver Panel (Ordered for 06/29/2025) Notes: stable, will continue current regiment?? 5.?Colon cancer screening?LAB: Occult Blood, Stool, Guaiac (Collection Date & Time - 12/27/2024)?Negative ? Value Reference Range ?Occult Blood, Stool, Guaiac Neg Notes: guaiac negative??6.?Depression screening? Notes: negative screen?? * Procedure Codes:?34100 TEST FOR BLOOD, FECES * * The named appointment provid er may or may not be the originator of this progress note, and it is not deemed complete until electronically signed by the appointment provider. Sign off status: Pending * Provider:?Dominick Westbrook MD Date:?0 12/27/2024 Generated for Dena silva/Rodriguez/eTnerissasmitting on:?12/27/2024 03:27 PM EDT History and Physical Notes * HPI (History of Present Illness) Category Sub-Category Detail Notes Category Not es Symptom(s) patient is a 44 yo male here for annual visit with review of recent labs and follow up of chronic issues Depression Screening PHQ-9 Little inte rest or pleasure in doing things: Not at all Feeling down, depressed, or hopeless: No t at all Trouble falling or staying asleep, or sl eeping too much: Not at all Feeling tired or having little energy: N ot at all Poor appetite or overeating: Not at all Feeling bad about yourself o r that you are a failure, or have let yourself or your family down: Not at all Trouble concentrating on thi ngs, such as reading the newspaper or watching television: Not at all Moving or speaking so slowly that other people could have noticed; or the opposite, being so fidgety or restless that you have been moving around a lot more than usual: Not at all Thoughts that you would be b raman off or of hurting yourself in some way: Not at all Total Score: 0 Interpretation and Intervention Depression Mary rocha Findings: Negative Follow-Up for Depression: : review of PH Q-9 found negative result, no follow-up needed SDOH Questions SDOH Questions In the past year have you been worried about losing housing?: No In the past year have you or any family members you live with been unable to get any of the following when it was really needed? Check all that apply:: None Communication Needs Communication Needs Does the patient have a hearing impairment: No Does the patient have a vision impairmen t?: No Does the patient have a cognition impair ment?: No Examination Category Sub-Category Detail Notes Category Not es General Examination GENERAL APPEARANCE: well dev eloped, well nourished, in no acute distress HEAD: normocephalic, atrau matic EYES: pupils equal, round, reactive to light and accommodation, sclera non-icteric EARS: normal THROAT: clear NECK/THYROID: neck supple, full ra nge of motion, no cervical lymphadenopathy, no bruits HEART: regular rate and rhy thm, S1, S2 normal, no murmurs LUNGS: clear to auscultatio n bilaterally ABDOMEN: soft, nontender, non distended, bowel sounds present, normal, no organomegaly , no masses palpable NEUROLOGIC: nonfocal, motor stre ngth normal upper and lower extremities, sensory exam intact SKIN: warm and dry, no ayaz picious lesions EXTREMITIES: no clubbing, cyanosi s, or edema MALE GENITOURINARY: circumcised, no test icular mass, testes descended bilaterally RECTAL EXAM: normal tone, no exte rnal hemorrhoids, no masses palpable, prostate normal, stool guaiac negative ORAL CAVITY: mucosa moist
--- OUTSIDE RECORDS SUMMARY | 2024-12-27 15:28 | XMS_ITS | Patient Health Record ---
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 Name Role Phone Dominick Westbrook Primary Care Provider Allergies Allergen (clinical drug ingredient) Drug/Non Drug Allergy documented on EMR Reaction Allergy Type Onset Date Status penicillin V Penicillin V Potassium rash Drug Allergy Active amoxicillin / clavulanate Augmentin rash Drug Allergy Active Results Component Value Reference Range Notes GREG Reviewed date:04/27/2024 01:05:25 PM Interpretation:Negative Performing Lab: Notes/Report: Negative Hold Gold Reviewed date:06/25/2024 05:47:36 PM Interpretation: Performing Lab:[facility], [address] [place] [phone] Notes/Report: Hold Gold See Note Specimen held untested for 24 hours; Call to request Chemistry testing. Liver Panel Reviewed date:06/25/2024 05:49:22 PM Interpretation: Performing Lab:[address] [phone] Notes/Report: Bilirubin Total 0.4 0.0-1.0 mg/dL Bilirubin Direct 0.2 0.0-0.5 mg/dL Aspartate Amino Transferase 26 5-37 U/L Alanine Aminotransferase 31 0-40 U/L Total Protein 7.5 6.5-8.0 g/dL Albumin Level 4.5 3.5-5.0 g/dL Alkaline Phosphatase 70 39-117 U/L Lipid Panel with Reflex Reviewed date:06/25/2024 05:50:41 PM Interpretation: Performing Lab:[facility], [address] [place] [phone] Notes/Report: Triglycerides 98 <150 mg/dL Desirable Triglyceride: [...] low results in patients with liver disease. Complete Blood Count Auto Di ff Reviewed date:12/20/2024 05:07:15 PM Interpretation: Performing Lab:[facility], [address] [place] [phone] Notes/Report: White Blood Count 8.0 4.8-10.8 X10*3/uL [...] NRBC Abs Auto 0.000 0.0-0.012 X10*3/uL Comprehensive [place]. Panel Fa st Reviewed date:12/21/2024 12:36:06 PM Interpretation: Performing Lab:[address] [phone] Notes/Report: Sodium 140 135-145 mmol/L Potassium 4.2 [...] Panel Reviewed date:12/20/2024 04:48:20 PM Interpretation: Performing Lab:[address] [place] [address] Notes/Report: Triglycerides 83 <150 mg/dL Desirable Triglyceride: [...] (Free>4and<10) Reviewed date:12/20/2024 04:54:16 PM Interpretation: Performing Lab:[address] [phone] Notes/Report: PSA,Total (Free>4and<10) 0.48 0.00-4.00 ng/mL A [...] t Reviewed date:12/21/2024 12:54:06 PM Interpretation: Performing Lab:[address] [phone] Notes/Report: Urine, Clean Catch Color Urine Yellow Appearance Urine Clear PH 6.0 5.0-9.0 Glucose Urine UA Negative Negative mg/dL Urine Blood Trace Negative Specific [place] - Urine 1.015 1.005-1.025 Urine Protein Negative Neg-Trace mg/dL Urine Ketones Negative Negative mg/dL Nitrite Urine Negative Negative Leukocyte Esterase Urine Negative Negative RBC Urine 0-2 0-2 /HPF WBC Urine 0-5 0-5 /HPF Squamous Epithelial Cell Urine 0-2 0-2 /HPF Bacteria Urine None Seen None Seen Hyaline Casts Urine 0-2 0-2 /LPF UA ClnCatch+Micro w/rflx Cul t (Not yet reviewed by provider) Interpretation: Performing Lab:[facility], [address] [place] [phone] Notes/Report: Urine, Clean Catch Color Urine Yellow Appearance Urine Clear PH 5.5 5.0-9.0 Glucose Urine UA Negative Negative mg/dL Urine Blood Negative Negative Specific [place] - Urine 1.020 1.005-1.025 Urine Protein Negative [...] Notes/Report: Negative Occult Blood, Stool, Guaiac Neg Reason For Referral No Information Medications Medication SIG (Take, Route, Frequency, Duration) Notes Start Date End Date Status Rosuvastatin Calcium 10 MG TAKE 1 TABLET BY MOUTH EVERY DAY Active Advil 200 MG 1 tablet with food o r milk as needed Orally every 6 hrs Not-Taking Immunizations Vaccine Route Administration Date Status Comme nts Covid Vaccine Unknown 09/03/2020 Administered Moderna Covid Vaccine Unknown 09/30/2020 Administered Moderna Covid Vaccine Unknown 10/28/2020 Administered Moderna Fluarix Quadrivalent Unknown 05/19/2017 Refused Fluarix Quadrivalent Unknown 10/03/2018 Refused Fluarix Quadrivalent Unknown 10/15/2019 Refused Fluarix Quadrivalent Unknown 10/10/2020 Refused Fluarix Quadrivalent Unknown 06/22/2022 Refused Social History Tobacco Use: Social History Observation [...] ast year? No Points 0 Interpretation Negative Problems Problem Type SNOMED Code ICD Code Onset Dates Problem Status W/U Status Risk Notes Problem 14193832 Hypercholesterol emia (E78.00) Active confirmed Vital Signs Blood pressure diastolic 60 mm Hg 12/27/2024 Height 66.5 in 12/27/2024 Blood pressure systolic 102 mm Hg 12/27/2024 Weight 149 lbs 12/27/2024 BMI 23.69 kg/m2 12/27/2024 Encounters Encounter Location Date Provider Diagnosis Dominick Westbrook MD [address] [place] [phone] 06/25/2024 Dominick Westbrook Hypercholesterolemia E78.00 Dominick Westbrook MD [address] [place] [address] [phone] 12/20/2024 Dominick Westbrook Blood tests for rout ine general physical examination Z00.00 and Hypercholesterolemia E78.00 Domiinck Westbrook MD [address] [place] [address] Drive [address] [place] [phone] 12/27/2024 Dominick Westbrook Hematuria R31.9 ; An nual physical exam Z00.00 ; Prediabetes R73.09 ; Hypercholesterolemia E78.00 ; Colon cancer screening Z12.11 and Depression screening Z13.31 Assessments Encounter Date Diagnosis (ICD Code) Assessment Notes Treatment Notes Treatment Clinical Notes Section Notes 06/25/2024 Hypercholesterolemia (ICD-10 - E78.00) 12/20/[address] ine general physical examination (ICD-10 - Z00.00) 12/27/2024 Hematuria (ICD-10 - R31.9) will continue to monitor, pending lab 12/27/2024 Annual physical exam (ICD-10 - Z00.00) labs reviewed and discussed with patient 12/20/2024 Hypercholesterolemia (ICD-10 - E78.00) 12/27/2024 Prediabetes (ICD-10 - R73.09) stable, no need for medication at this time 12/27/2024 Hypercholesterolemia (ICD-10 - E78.00) stable, will continue current regiment 12/27/2024 Colon cancer screeni ng (ICD-10 - Z12.11) guaiac negative 12/27/2024 Depression screening (ICD-10 - Z13.31) negative screen Plan Of Treatment Pending Test Test Name Order Date UA ClnCatch+Micro w/rflx Cult 12/27/2024 Next Appt Details Provider Name:Dominick Mendoza ier, 07/01/2025 08:00:00 AM, [address] [place] [address], [address], [place], [place], [phone], Provider Name:Dominick Mendoza ier, 12/23/2025 07:45:00 AM, [address] [place] [address], [address], [place], [place], [phone], Provider Name:Dominick Mendoza ier, 12/30/2025 01:00:00 PM, [address] [place] [address], Suite [facility], [place], [place], [phone], Insurance Providers Payer Name Payer Address Payer Phone Subscriber Number Group Number Insured Name Patient Relationship to Insured Coverage Start Date Coverage End Date [facility] [address] [place], [place] [id number] [phone] [id number] Tomi Gibbs Self - patient is the insured Medical (General) History Medical History History ICD Code 4.7 risk of coronary disease in 10 years cologard 2023
== END 2024-12-27 14:49 | disposition home or self-care (01) ==
LOC: HO.LNP 14:48
PROVIDERS: Visit Provider Internal Medicine
DX: R31.9 Hematuria, unspecified (principal)
CPT/HCPCS: 81001

== ENCOUNTER 2025-07-01 12:59 | Outpatient (REF) | payer BC, SELFPAY ==
[2025-07-01 13:44] LABS: Alanine Aminotransferase 22 U/L (0-40); Albumin Level 4.8 g/dL (3.5-5.0); Alkaline Phosphatase 67 U/L (39-117); Aspartate Amino Transferase 26 U/L (5-37); Total Protein 7.3 g/dL (6.5-8.0)
== END 2025-07-01 13:00 | disposition home or self-care (01) ==
LOC: HO.LNP 12:59
PROVIDERS: Visit Provider Internal Medicine
DX: E78.00 Pure hypercholesterolemia, unspecified (principal)
CPT/HCPCS: 80076